=== PATIENT | female | born 1940 | race Caucasian/White ===

== ENCOUNTER 2017-05-22 08:56 | Inpatient (IN) | payer MEDICARE ==
--- NOTE | ~2017-05-22 | CR72 ---
[facility] A Service of [facility] & [facility] RADIOLOGY TEXT RESULTS PATIENT: LAURA PARKER LOCATION: [facility] 576-01 : 41 UNIT #: [id number] AGE: [address]: Michael Vale MD SEX: F ORDER DR: [id number] [facility] [address] [place], [place] [address] [id number] I MR#: [id number] Acc #: [id number] NAME: LAURA PARKER : 1940 SEX: F STUDY DATE/TIME: 05/22/2017 9:44 UNIT: [facility] ROOM: [facility] STUDY DESCRIPTION: CR Chest Single View Portable Attending Physician: Michael Vale M.D. Ordering Physician: Hipolito Ron D.O. Primary Care Physician: No Primary Care Physician MEDICAL IMAGING REPORT This report is preliminary unless electronic signature is present EXAM Portable chest, 1 views, 05/22/2017. HISTORY Short of air today. FINDINGS There is a moderate right basilar pneumothorax. A small apical right is seen as well. This is superimposed on what appears to be COPD. Heart size within normal limits. Results were discussed with Dr. Ron in the emergency room at about 10:10 a.m. Dictated by... Hasmukh Foley M.D. THIS IS AN ELECTRONICALLY VERIFIED REPORT Hasmukh Foley M.D. at 05/25/2017 4:07 PM AN/sherrie TD: 05/22/2017 15:55 JOB #: [id number] MEDICAL IMAGING REPORT Page 1 of 1 COPY
--- NOTE | ~2017-05-22 | CR72 ---
[facility] A Service of [facility] & [facility] RADIOLOGY TEXT RESULTS PATIENT: LAURA PARKER LOCATION: [facility] 576-01 : 41 UNIT #: [id number] AGE: [address]: Michael Vale MD SEX: F ORDER DR: [id number] [facility] [address] [place], [place] [address] [id number] I MR#: [id number] Acc #: [id number] NAME: LAURA PARKER : 1940 SEX: F STUDY DATE/TIME: 05/23/2017 16:52 UNIT: [facility] ROOM: [facility] STUDY DESCRIPTION: CR Chest Single View Portable Attending Physician: Michael Vale M.D. Ordering Physician: Alexandru Rich M.D. Primary Care Physician: No Primary Care Physician MEDICAL IMAGING REPORT This report is preliminary unless electronic signature is present EXAM Portable chest, 05/23/2017. HISTORY Shortness of breath, status post removal of right chest tube earlier today. Evaluate for pneumothorax. Benign essential hypertension and asthma. FINDINGS The cardiac and mediastinal structures are stable compared with earlier today at 6:13 a.m. The upper right pleural tube has been removed. The lower right pleural tube remains in place. There is no evidence of pneumothorax. Diffuse interstitial infiltrates are seen bilaterally, may reflect mild pulmonary edema. Atelectasis or infiltrate left lower lobe. IMPRESSION Removal of the upper right pleural tube compared with earlier today at 6:13 a.m. No evidence of pneumothorax. Dictated by... Dimitris Noe M.D. THIS IS AN ELECTRONICALLY VERIFIED REPORT Dimitris Noe M.D. at 05/24/2017 2:26 PM VLADIMIR/jovan TD: 05/23/2017 20:35 JOB #: [id number] MEDICAL IMAGING REPORT Page 1 of 1 COPY
--- NOTE | ~2017-05-22 | EKG ---
PATIENT: LAURA PARKER UNIT #: [id number] Ventricular Rate: 87 BPM Atrial Rate: 87 BPM P-R Interval: 146 ms QRS Duration: 102 ms Q-T Interval: 384 ms QTC Calculation(Bezet): 462 ms P [place]: 88 degrees Calculated R [place]: 94 degrees Calculated T [place]: 47 degrees Diagnosis Line: Normal sinus rhythm Diagnosis Line: Rightward axis Diagnosis Line: Incomplete right bundle branch block Diagnosis Line: Borderline ECG Diagnosis Line: No previous ECGs available Diagnosis Line: Confirmed by LORENA KENNEY MD ([id number]) on Diagnosis Line: 05/22/2017 4:26:13 PM INTERPRETING MD: ELIZABETH
--- NOTE | ~2017-05-22 | CR72 ---
[facility] A Service of [facility] & [facility] RADIOLOGY TEXT RESULTS PATIENT: LAURA PARKER LOCATION: [facility] 576-01 : 41 UNIT #: [id number] AGE: [address]: Michael Vale MD SEX: F ORDER DR: [id number] [facility] [address] [facility] [place], [place] [address] [id number] I MR#: [id number] Acc #: [id number] NAME: LAURA PARKER : 1940 SEX: F STUDY DATE/TIME: 05/22/2017 12:12 UNIT: [facility] ROOM: [facility] STUDY DESCRIPTION: CR Chest Single View Portable Attending Physician: Michael Vale M.D. Ordering Physician: Hipolito Ron D.O. MEDICAL IMAGING REPORT This report is preliminary unless electronic signature is present EXAM Portable chest one-view 05/22/2017 12:12 COMPARISON 09:44 HISTORY Right pneumothorax, short of air, chest tube insertion. FINDINGS There is been insertion of a right-sided small-bore chest tube. A moderate right basilar pneumothorax remains with questionable slight leftward midline shift. Dictated by... Hasmukh Foley M.D. THIS IS AN ELECTRONICALLY VERIFIED REPORT Hasmukh Foley M.D. at 05/23/2017 10:25 AM TEV/pcl TD: 05/22/2017 17:31 JOB #: [id number] MEDICAL IMAGING REPORT Page 1 of 1 COPY
--- NOTE | ~2017-05-22 | OR ---
Unit #: [id number] #: [id number] Patient: LAURA PARKER [id number] [address] [address] [id number] E MR#: [id number] NAME: LAURA PARKER ROOM: Date of Procedure: 05/22/2017 Admission Date: 05/22/2017 Surgeon: Naveed Rich M.D. : 1940 Attending Physician: Hipolito Ron D.O. Primary Care Physician: Lauren Primary Care Physician PROCEDURE OPERATIVE NOTE PROCEDURE PERFORMED Small percutaneous chest tube placement, pigtail. INDICATION FOR PROCEDURE Right-sided pneumothorax. PREMEDICATION Versed 4 mg IV x1. COMPLICATION None. DESCRIPTION OF THE PROCEDURE Informed consent was obtained from the patient after explaining the benefits and risks of this procedure. The right anterior chest was prepped and cleaned with chlorhexidine. Then, a body drape was applied. Then, 2% lidocaine was instilled at the level of the 2nd intercostal space. Then, a small cut with a scalpel was made and the small percutaneous pigtail tube was inserted over a trocar until air gush was obtained. Then, the catheter was inserted deeper, and the trocar was removed. The catheter was connected to suction, and a STAT chest x-ray is pending at the time of dictation. The patient tolerated her procedure well with no immediate complications. Dictated by... Naveed Rich M.D. EA/emile TD: 05/22/2017 13:24 JOB #: [id number] Unit #: [id number] #: [id number] Patient: LAURA PARKER PROCEDURE OPERATIVE NOTE Page 1 of 1 X NAVEED MCGRAW MD PROCEDURE OPERATIVE NOTE
--- NOTE | ~2017-05-22 | DS ---
Unit #: [id number] #: [id number] Patient: LAURA PARKER [id number] [address] [address] [id number] I MR#: [id number] NAME: LAURA PARKER ROOM: 576 Age: 76 Sex: F Admission Date: 05/22/2017 : 1940 Discharge Date: 05/25/2017 Attending Physician: Michael Vale M.D. Primary Care Physician: No Primary Care Physician DISCHARGE SUMMARY ADMITTING DIAGNOSES 1. Acute exacerbation of chronic obstructive pulmonary disease. 2. Right-sided spontaneous pneumothorax. DISCHARGE DIAGNOSES 1. Chronic hypoxic respiratory failure. 2. Acute exacerbation of chronic obstructive pulmonary disease. 3. Spontaneous right-sided pneumothorax, resolved. 4. Nicotine abuse. 5. Hypertension. 6. Questionable mental impairment or retardation. PROCEDURES PERFORMED Right-sided pigtail chest tube placement. DISCHARGE MEDICATIONS 1. Azithromycin 250 mg p.o. daily for 3 days. 2. Mucinex 600 mg p.o. b.i.d. for 30 pills times 1 refill. 3. Duo-Neb q.i.d. p.r.n. 4. Symbicort 160/4.5 b.i.d. 5. Prednisone tapering course. 6. Norvasc 10 mg p.o. daily. 7. Furosemide 20 mg p.o. daily. 8. Atorvastatin 10 mg p.o. daily. 9. Benazepril 40 mg p.o. daily. 10. [place] 7.5/325 mg q.i.d. p.r.n. BRIEF HOSPITAL COURSE This is a very pleasant 76-year-old female with a past medical history significant for chronic hypoxic respiratory failure and chronic obstructive pulmonary disease, who just moved from [place] to live with her daughter. The patient presented to the emergency room with respiratory distress, chest pain and shortness of breath. Workup was consistent with right-sided pneumothorax and acute exacerbation of chronic obstructive pulmonary disease. She initially had small port chest tube placed by sd anteriorly, with partial resolution of her pneumothorax. However, her chest tube was kinked and there was no leak in the chest tube, so another small port pigtail was inserted through interventional radiology with complete resolution of her pneumothorax. Chest tube was kept in for 24 hours with complete resolution of her pneumothorax. Chest tube was removed on 05/24/2017 and a follow-up chest x-ray on 05/25/2017 showed complete resolution of her pneumothorax. The patient was also placed on IV azithromycin, IV steroids and aggressive Unit #: [id number] #: [id number] Patient: MANUEL PARKERTY pulmonary toilet, including bronchodilator and mucolytic. She will be discharged home on Z-Mannie, prednisone pill and bronchodilator. FOLLOWUP The patient will follow up with Dr. Vale as an outpatient. She is unable to make it to my office in the [facility]. Time spent on discharge was 25 minutes. This plan was communicated with her daughter in detail. Dictated by... Chata Alberts TD: 05/25/2017 13:12 JOB #: [id number] DISCHARGE SUMMARY Page 1 of 1 X NAVEED MCGRAW MD X DISCHARGE SUMMARY
--- NOTE | ~2017-05-22 | CT57 ---
[facility] A Service of [facility] RADIOLOGY TEXT RESULTS PATIENT: LAURA PARKER LOCATION: [facility] 576-01 : 41 UNIT #: [id number] AGE: [address]: Michael Vale MD SEX: F ORDER DR: [id number] [facility] [address] [place], [place] [address] [id number] I MR#: [id number] Acc #: [id number] NAME: LAURA PARKER : 1940 SEX: F STUDY DATE/TIME: 05/22/2017 10:59 UNIT: [facility] ROOM: [facility] STUDY DESCRIPTION: CT Chest Wo Cont Attending Physician: Michael Vale M.D. Ordering Physician: Hipolito Ron D.O. Primary Care Physician: Primary Care Physician No MEDICAL IMAGING REPORT This report is preliminary unless electronic signature is present EXAM Chest CT without contrast, 05/22/2017 HISTORY Short of air and right side chest pain for [address] exam was performed with one or more of the following radiation dose reduction techniques: automatic exposure control, adjustment of mA and/or kV according to patient size, and iterative reconstruction. FINDINGS There is a right side pneumothorax. There may be some slight leftward mediastinal shift suggesting an element of tension pneumothorax though the lung is incompletely collapsed. There is no left pneumothorax and there is no evidence of suspicious mass and no effusion is seen. There is no fracture. The bony structures are unremarkable except for spinal degenerative change. It appears there has been right hemithyroidectomy. The upper abdomen is normal. IMPRESSION Moderate right pneumothorax with leftward mediastinal shift. While there is incomplete lung collapse, there may be an element of tension pneumothorax. Dictated by... Hasmukh Foley M.D. THIS IS AN ELECTRONICALLY VERIFIED REPORT Hasmukh Foley M.D. at 05/23/2017 10:28 AM AN/miguelito [facility] A Service of [facility] RADIOLOGY TEXT RESULTS PATIENT: LAURA PARKER LOCATION: [facility]6-01 : 41 UNIT #: [id number] AGE: [address]: Michael Vale MD SEX: F ORDER DR: TD: 05/22/2017 16:44 JOB #: [id number] MEDICAL IMAGING REPORT Page 1 of 1 COPY
--- NOTE | ~2017-05-22 | CR72 ---
[facility] A Service of [facility] RADIOLOGY TEXT RESULTS PATIENT: LAURA PARKER LOCATION: [facility] 576-01 : 41 UNIT #: [id number] AGE: [address]: Michael Vale MD SEX: F ORDER DR: [id number] [facility] [address]. [place], [place] [address] [id number] E MR#: [id number] Acc #: [id number] NAME: LAURA PARKER : 1940 SEX: F STUDY DATE/TIME: 05/22/2017 14:33 UNIT: [facility] ROOM: STUDY DESCRIPTION: CR Chest Single View Portable Attending Physician: Hipolito Ron D.O. Ordering Physician: Hipolito Ron D.O. Primary Care Physician: No Primary Care Physician MEDICAL IMAGING REPORT This report is preliminary unless electronic signature is present EXAM Portable chest. HISTORY Chest tube placement. Shortness of breath onset today. TECHNIQUE Single view of the chest was obtained and compared with earlier the same day. FINDINGS A small caliber chest tube is again seen on the right. The right pneumothorax has resolved almost completely. There is still a small residual pneumothorax at the apex. No new infiltrates are seen on either side. IMPRESSION Marked improvement since the previous examination. Small residual right apical pneumothorax. STAT * RESULT Dictated by... Anjum Hartmann M.D. THIS IS AN ELECTRONICALLY VERIFIED REPORT Anjum Hartmann M.D. at 05/22/2017 4:54 PM RLF/sherrie TD: 05/22/2017 15:07 JOB #: [id number] [facility] A Service of [facility] & [facility] RADIOLOGY TEXT RESULTS PATIENT: LAURA PARKER LOCATION: [facility] 576-01 : 41 UNIT #: [id number] AGE: [address]: Michael Vale MD SEX: F ORDER DR: MEDICAL IMAGING REPORT Page 1 of 1 COPY
--- NOTE | ~2017-05-22 | HP ---
Unit #: [id number] #: [id number] Patient: LAURA PARKER [id number] [address] [place], [place] [address] [id number] E MR#: [id number] NAME: LAURA PARKER ROOM: Age: 76 Sex: F Admission Date: 05/22/2017 : 1940 Attending Physician: Hipolito Ron D.O. Primary Care Physician: No Primary Care Physician HISTORY AND PHYSICAL REASON FOR ADMISSION Shortness of breath and new finding of pneumothorax. HISTORY OF PRESENT ILLNESS This is a very pleasant 76-year-old female with past medical history significant for hypertension and COPD, who is chronically on 3 L nasal cannula, who presented to the emergency room with two to three days history of progressive shortness of breath and dry cough. Patient also had some chest discomfort, but she could not tell if it was an overt chest pain. Patient denied any nausea, vomiting, or diarrhea. Patient smoked for a long time, at least one pack per day. She used to live in [place] and she just moved two to three days ago to live with her daughter here in [place]. REVIEW OF SYSTEMS A 12-point review of systems was obtained and was negative except for what was mentioned in the HPI. PAST MEDICAL HISTORY 1. Hypertension. 2. COPD. 3. Chronic hypoxic respiratory failure. PAST SURGICAL HISTORY 1. Appendectomy. 2. Gallbladder resection. 3. Tonsillectomy. SOCIAL HISTORY The patient smoked one pack per day for a long time. She does not drink or use street drugs. ALLERGIES No known drug allergies. CODE STATUS Full. PHYSICAL EXAMINATION GENERAL: The patient is in respiratory distress. VITAL SIGNS: Blood pressure is 151/69, respiratory rate 22, O2 saturation 96% on 4 L nasal cannula. HEENT: Atraumatic, normocephalic. PERRLA. EOMI. NECK: Supple. No JVD. No lymphadenopathy. Unit #: [id number] #: [id number] Patient: LAURA PARKER CHEST: Diffuse bilateral rhonchi and wheezing. HEART: S1, S2. No murmur, gallops, or rubs. ABDOMEN: Soft, nontender. Bowel sounds positive. No hepatosplenomegaly. EXTREMITIES: No edema or cyanosis. SKIN: No rashes. CENTRAL NERVOUS SYSTEM: Awake, alert, oriented x3. No focal motor/sensory deficits. DIAGNOSTIC STUDIES LABORATORY: Creatinine 0.7, chloride 96, CO2 of 31. Hemoglobin 9.4, platelets 588,000. IMAGING: Chest x-ray consistent with right-sided pneumothorax. ASSESSMENT 1. Right-sided spontaneous pneumothorax. 2. Acute exacerbation of chronic obstructive pulmonary disease. 3. Chronic hypoxic respiratory failure. 4. Chronic anemia. 5. Hypertension. 6. Nicotine abuse. PLAN 1. Will proceed with emergent chest tube placement in the emergency room. I will chose a small port as this is only a pneumothorax issue. 2. IV steroid bronchodilator and mucolytics. 3. Gentle IV hydration and will hold Lasix overnight. 4. IV azithromycin. 5. Deep venous thrombosis prophylaxis. Dictated by Chata Alberts TD: 05/22/2017 12:51 JOB #: [id number] HISTORY AND PHYSICAL Page 1 of 1 X NAVEED MCGRAW MD X HISTORY AND PHYSICAL
--- NOTE | ~2017-05-22 | XA96 ---
[facility] A Service [facility] RADIOLOGY TEXT RESULTS PATIENT: LAURA PARKER LOCATION: [facility] 576-01 : 41 UNIT #: [id number] AGE: [address]: Michael Vale MD SEX: F ORDER DR: [id number] [address] [place], [place] [address] [id number] I MR#: [id number] Acc #: [id number] NAME: LAURA PARKER : 1940 SEX: F STUDY DATE/TIME: 05/22/2017 10:36 UNIT: [facility] ROOM: [facility] STUDY DESCRIPTION: XA Chest Tube for Pneumo or pl Attending Physician: Michael Vale M.D. Ordering Physician: Michael Vale M.D. Primary Care Physician: No Primary Care Physician MEDICAL IMAGING REPORT This report is preliminary unless electronic signature is present EXAM Fluoroscopically-guided right chest tube placement. INDICATION 76-year-old female with spontaneous pneumothorax today in the ER. Chest tube was placed in the ER, however, the lung failed to completely re-expand and there is a large residual pneumothorax at the right base. Chest tube placement was requested. FLUOROSCOPY TIME 1.2 minutes. REFERENCE AIR KERMA 4 mGy MEDICATIONS ADMINISTERED 1 mg of Versed IV and 50 mcg of fentanyl IV. Approximately 25 minutes of conscious sedation time was monitored by appropriately credentialed radiology nursing staff with 11 minutes of face to face time direct supervision by Dr. Martinez. CONSENT The risks, benefits, and alternatives of the procedure were discussed with the patient and informed consent was obtained. In the procedure room, a time-out was performed confirming correct patient and procedure. All elements of maximum sterile-barrier technique utilized according to guidelines appropriate for the procedure. TECHNIQUE/FINDINGS The patient was placed on the fluoroscopy table in the supine position and fluoroscopic evaluation of the chest demonstrated a moderate right basilar pneumothorax similar to the chest x-ray done prior to the procedure. Next, using full standard sterile barrier technique including sterile [facility] A Service [facility] RADIOLOGY TEXT RESULTS PATIENT: LAURA PARKER LOCATION: [facility] 576-01 : 41 UNIT #: [id number] AGE: [address]: Michael Vale MD SEX: F ORDER DR: caps, gowns, gloves, masks, drapes, 2% Chlorhexidine for cutaneous antisepsis. A 5-Comoran Yueh catheter was inserted into the pleural space via a mid axillary approach at the right base. A superstiff guidewire was advanced through the catheter. The catheter was removed and the track was serially dilated. Next, a 10-Comoran pigtail catheter was advanced over the guidewire and formed in the pleural space of the right lung base. The catheter was sutured in place and hooked to Pleur-evac drainage. Spot image confirmed satisfactory positioning with significant decrease in size of pneumothorax. Patient tolerated the procedure well without immediate complications. IMPRESSION Technically successful placement of a right sided chest tube as described. Dictated by... Chance Martinez M.D. THIS IS AN ELECTRONICALLY VERIFIED REPORT Chance Martinez M.D. at 05/24/2017 12:25 PM GARTH/sherrie TD: 05/23/2017 09:13 JOB #: [id number] MEDICAL IMAGING REPORT Page 1 of 1 COPY
--- NOTE | ~2017-05-22 | CR72 ---
[facility] A Service of [facility] & [facility] RADIOLOGY TEXT RESULTS PATIENT: LAURA PARKER LOCATION: [facility] 576-01 : 41 UNIT #: [id number] AGE: [address]: Michael Vale MD SEX: F ORDER DR: [id number] [facility] [address]. [place], [place] [address] [id number] I MR#: [id number] Acc #: [id number] NAME: LAURA PARKER : 1940 SEX: F STUDY DATE/TIME: 05/25/2017 5:52 UNIT: [facility] ROOM: [facility] STUDY DESCRIPTION: CR Chest Single View Portable Attending Physician: Michael Vale M.D. Ordering Physician: Alexandru Rich M.D. Primary Care Physician: No Primary Care Physician MEDICAL IMAGING REPORT This report is preliminary unless electronic signature is present EXAM Portable chest. INDICATION Follow up pneumothorax. COMPARISON Comparison with 05/23/2017. FINDINGS The right chest tube has been removed. There is no appreciable pneumothorax. No new infiltrates. The heart size is stable. IMPRESSION Removal of a right chest tube. No appreciable pneumothorax. Dictated by... Chance Martinez M.D. THIS IS AN ELECTRONICALLY VERIFIED REPORT Chance Martinez M.D. at 05/27/2017 12:10 PM GARTH/sherrie TD: 05/25/2017 10:07 JOB #: [id number] MEDICAL IMAGING REPORT Page 1 of 1 COPY
--- NOTE | ~2017-05-22 | CR72 ---
[facility] A Service of [facility] & [facility] RADIOLOGY TEXT RESULTS PATIENT: LAURA PARKER LOCATION: [facility] 576-01 : 41 UNIT #: [id number] AGE: [address]: Michael Vale MD SEX: F ORDER DR: [id number] [facility] [address] [place], [place] [address] [id number] I MR#: [id number] Acc #: [id number] NAME: LAURA PARKER : 1940 SEX: F STUDY DATE/TIME: 05/23/2017 6:13 UNIT: [facility] ROOM: [facility] STUDY DESCRIPTION: CR Chest Single View Portable Attending Physician: Michael Vale M.D. Ordering Physician: Michael Vale M.D. Primary Care Physician: Primary Care Physician No MEDICAL IMAGING REPORT This report is preliminary unless electronic signature is present EXAM Single view chest INDICATIONS Pneumothorax. Right chest tube. FINDINGS Single portable AP view of the chest compared to 05/22/17. There are 2 right chest tubes. No pneumothorax is visible on today's radiograph. There is some mild increased interstitial markings in both lungs. IMPRESSION 1. Resolution of the right pneumothorax. Patient has 2 right-sided chest tubes. Dictated by... Greyson Lara M.D. THIS IS AN ELECTRONICALLY VERIFIED REPORT Greyson Lara M.D. at 05/23/2017 8:02 AM TRI/michelle TD: 05/23/2017 07:20 JOB #: [id number] MEDICAL IMAGING REPORT Page 1 of 1 COPY
[2017-05-22 09:55] LABS: BASOPHIL# 0.1 X10e3 (0-0.3); BASOPHIL% 0.8 % (0-2.5); EOSINOPHIL# 0.2 X10e3 (0-0.7); EOSINOPHIL% 2.5 % (0.0-7.0); HEMATOCRIT 30.2 % (35.0-45.0); HEMOGLOBIN 9.4 gm/dL (12.0-16.0); LYMPHOCYTE# 0.9 X10e3 (1.0-3.5); LYMPHOCYTE% 10.8 % (17.0-45.0); MEAN CELL VOLUME 92.3 FL (83-96); MEAN CORPUSCULAR HEMOGLOBIN 28.7 PG (28-34); MEAN CORPUSCULAR HGB CONC 31.1 g/dL (30-36); MEAN PLATELET VOLUME 6.7 FL (6.5-11.5); MONOCYTE# 0.5 X10e3 (0-1.0); NEUTROPHIL# 6.3 X10e3 (1.5-7.1); NEUTROPHIL% 79.9 % (40-75); PLATELET COUNT 588 X10e3 (140-420); RED BLOOD COUNT 3.27 X10e (3.90-5.30); RED CELL DISTRIBUTION WIDTH 16.2 % (11.0-15.5); WHITE BLOOD COUNT 7.9 X10e3 (4.0-10.5)
[2017-05-22 09:56] LABS: DIFF IND NO
[2017-05-22 09:58] LABS: POC - CKMB 22.1 ng/mL (0.0-7.9); POC - TROPONIN <0.05 ng/mL (<=0.05)
[2017-05-22 10:07] LABS: PARTIAL THROMBOPLASTIN TIME 23.9 SECONDS (23.5-31.3); PROTHROMBIN TIME (PATIENT) 10.5 SECONDS (10.0-11.7)
[2017-05-22] MEDS ORDERED: BENAZEPRIL HCL40 MG PO (10:07)
[2017-05-22] MEDS ORDERED: AMLODIPINE-BEN1 EAC5 PO (10:07)
[2017-05-22] MEDS ORDERED: PATIENT'S PHARMACY (10:07)
[2017-05-22] MEDS ORDERED: LASIX20 MG PO (10:08)
[2017-05-22] MEDS ORDERED: SYMBICORT INH (10:08)
[2017-05-22] MEDS ORDERED: ATORVASTATIN CA10 MG PO (10:08)
[2017-05-22] MEDS ORDERED: PROAIR HFA8.5 GM INH (10:08)
[2017-05-22] MEDS ORDERED: HYDROCODON-ACE1 EAC9 PO (10:09)
[2017-05-22 10:39] LABS: ALBUMIN SERUM 4.1 g/dL (3.5-5.0); ALKALINE PHOSPHATASE 85 U/L (32-92); ALT (SGPT) 12 U/L (10-40); AST (SGOT) 18 U/L (10-42); BILIRUBIN,TOTAL 0.3 mg/dL (0.2-2.0); BLOOD UREA NITROGEN 12 mg/dL (9-23); BUN/CREATININE RATIO 17.14; CALCIUM SERUM 9.3 mg/dL (8.4-10.2); CARBON DIOXIDE 31 mmol/L (22-31); CHLORIDE 96 mmol/L (100-111); CREATININE SERUM 0.7 mg/dL (0.6-1.4); GLOM FILT RATE Estimated 84.8 mL/min (>60); GLUCOSE FASTING 113 mg/dL (70-110); POTASSIUM 3.9 mmol/L (3.5-5.1); PROTEIN TOTAL SERUM 8.4 g/dL (6.0-8.3); SODIUM 138 mmol/L (135-145)
[2017-05-22 10:40] LABS: BILIRUBIN, DIRECT <0.1 mg/dL (0.0-0.2); BILIRUBIN,INDIRECT 0.2 mg/dL (0.0-0.9)
[2017-05-22 11:51] LABS: POC - CKMB 13.2 ng/mL (0.0-7.9); POC - TROPONIN <0.05 ng/mL (<=0.05)
[2017-05-25] MEDS ORDERED: COMBIVENT U/D3 M2 INH (11:37)
[2017-05-25] MEDS ORDERED: HUMIBID-LA600 MG PO (11:39)
[2017-05-25] MEDS ORDERED: AZITHROMYCIN250 MG PO (11:39)
[2017-05-25] MEDS ORDERED: PREDNISONE (13:19)
== END 2017-05-25 15:23 | disposition home or self-care (01) | DRG 200 ==
LOC: CED 08:56 → CEDOF 10:33 → C5C 10:33 → CED 12:35 → CEDOF 12:35 → C5C 15:21 → CEDOF 15:21 → C5C 05-25 15:23
PROVIDERS: Emergency Medicine
PROC: 0W9930Z Drainage of Right Pleural Cavity with Drainage Device, Percutaneous Approach (ICD-10-PCS; principal; 2017-05-22)
PROC: 0W9930Z Drainage of Right Pleural Cavity with Drainage Device, Percutaneous Approach (ICD-10-PCS; 2017-05-22)
DX: J93.83 Other pneumothorax (principal); J44.1 Chronic obstructive pulmonary disease with (acute) exacerbation; J96.11 Chronic respiratory failure with hypoxia; Z99.81 Dependence on supplemental oxygen; F17.210 Nicotine dependence, cigarettes, uncomplicated; I10 Essential (primary) hypertension; Z90.49 Acquired absence of other specified parts of digestive tract; D64.9 Anemia, unspecified
CPT/HCPCS: 36415; 71010; 71250; 80048; 80076; 82550; 82553; 83605; 83880; 84484; 85025; 85610; 85730; 93005; 94640; 94664; 94760; 96374; 99285; C1729; J0456; J1650; J2250; J2920; J2930; J3010

== ENCOUNTER → 2017-06-20 | Outpatient (CLI) | payer OTHER ==
[~2017-06-20] MED LIST: AMLODIPINE-BEN1 EAC5 PO; ATORVASTATIN CA10 MG PO; AZITHROMYCIN250 MG PO; BENAZEPRIL HCL40 MG PO; COMBIVENT U/D3 M2 INH; FLORASTOR; HUMIBID-LA600 MG PO; HYDROCODON-ACE1 EAC9 PO; LASIX20 MG PO; OMNICEF300 M1 PO; PATIENT'S PHARMACY; PREDNISONE; PROAIR HFA8.5 GM INH; SYMBICORT INH
--- NOTE | ~2017-06-20 | CT57 ---
[facility] A Service of [facility] & [facility] RADIOLOGY TEXT RESULTS PATIENT: LAURA PARKER LOCATION: [facility] : 41 UNIT #: [id number] AGE: [address]: Michael Vale MD SEX: F ORDER DR: [id number] [facility] [address] [facility] [place], [place] [address] [id number] O MR#: [id number] Acc #: [id number] NAME: LAURA PARKER : 1940 SEX: F STUDY DATE/TIME: 06/20/2017 12:45 UNIT: [facility] ROOM: STUDY DESCRIPTION: CT Chest Wo Cont Attending Physician: Michael Vale M.D. Referring Physician: Michael Vale M.D. Ordering Physician: Michael Vale M.D. Primary Care Physician: Primary Care Physician No MEDICAL IMAGING REPORT This report is preliminary unless electronic signature is present EXAM CT chest without contrast INDICATION Pneumothorax diagnosed May 22, 2017. This was a right-sided pneumothorax and it was spontaneous. The patient subsequently underwent placement of a right-sided chest tube which was removed on May 23. TECHNIQUE Axial CT images were obtained from the thoracic inlet through the dome of the diaphragm. No intravenous contrast material was administered. This CT exam was performed with one or more of the following radiation dose reduction techniques: automatic exposure control, adjustment of mA and/or kV according to patient size, and iterative reconstruction. FINDINGS No residual pneumothorax is identified within the right hemithorax. Patient does have scattered tree-in-bud infiltrates throughout the right lung which are actually present on the prior examination as well. There is some left basilar consolidation adjacent to the mediastinum which was not clearly present on the prior study. This area measures up to about 1.3 cm x 1.2 cm. No pneumothorax is seen on the left. The patient does have some scattered tree-in-bud infiltrates on the left as well but certainly not as numerous as on the right. Left lobe of the thyroid gland is enlarged and heterogeneous and the patient is status post right thyroidectomy. This area could be better assessed with dedicated thyroid ultrasound. Mediastinal lymph nodes do not appear pathologically enlarged. There is no pleural or pericardial effusion. The thoracic aorta measures within normal size limits. Trachea is within normal limits. There is a small to moderate hiatal hernia. Calcified granulomata are seen within the spleen. There is some STS. [facility] A Service of [facility] & [facility] RADIOLOGY TEXT RESULTS PATIENT: LAURA PARKER LOCATION: [facility] : 41 UNIT #: [id number] AGE: [address]: Michael Vale MD SEX: F ORDER DR: low attenuation lesions seen throughout the liver which are favored to represent cysts. I do not see any acute abnormalities within the upper abdomen. Review of bony windows does not demonstrate any aggressive osseous abnormalities. IMPRESSION 1. Interval resolution of this patient's right-sided pneumothorax. 2. Tree-in-bud infiltrates seen throughout both lungs, right greater than left, favored to be infectious or inflammatory in nature. There is also some focal consolidation seen within the left lower lobe at the lung base measuring up to 1.3 cm x 1.2 cm which is bigger than on prior study and I suspect this was probably a benign finding but given background emphysematous changes I would suggest short-term CT followup in 3 months. 3. The left lobe of the thyroid gland is enlarged and very heterogeneous the patient is status post right thyroidectomy. Further evaluation with dedicated thyroid ultrasound is suggested if not recently performed. 4. Vytdk-sw-[id number] hiatal hernia. Dictated by... Sheree Lake M.D. THIS IS AN ELECTRONICALLY VERIFIED REPORT Sheree Lake M.D. at 06/21/2017 5:26 PM HUBER/alejandra TD: 06/21/2017 02:50 JOB #: [id number] MEDICAL IMAGING REPORT Page 1 of 1 COPY
== END | disposition home or self-care (01) ==
LOC: CRC 11:42
DX: J44.9 Chronic obstructive pulmonary disease, unspecified (principal); J93.9 Pneumothorax, unspecified; R91.8 Other nonspecific abnormal finding of lung field; E04.9 Nontoxic goiter, unspecified; K44.9 Diaphragmatic hernia without obstruction or gangrene; E89.0 Postprocedural hypothyroidism
CPT/HCPCS: 71250; 94060; 94726; 94729

== ENCOUNTER 2017-07-16 10:30 | Inpatient (IN) | payer MEDICARE, OTHER ==
[~2017-07-16] VITALS: Ht 149.9 cm; Wt 61.8 kg
--- NOTE | ~2017-07-16 | HP ---
Unit #: [id number] #: [id number] Patient: LAURA PARKER [id number] [address] [place], [place] [address] [id number] I MR#: [id number] NAME: LAURA PARKER. ROOM: 82765 Age: 76 Sex: F Admission Date: 07/16/2017 : 1940 Attending Physician: Naveed Rich M.D. Primary Care Physician: Generic Doctor Not In System HISTORY AND PHYSICAL REASON FOR ADMISSION Nausea, vomiting, abdominal pain, lightheadedness and shortness of breath. HISTORY OF PRESENT ILLNESS This is a very pleasant 76-year-old female who follows with me and Dr. Vale in our office, who presented to the emergency room with 2 weeks history of nausea, vomiting, lightheadedness, shortness of breath and cough. Patient stated that she went to see Dr. Vale and she was given Levaquin for 10 days which she finished with no improvement so she finally presented to the emergency room. Patient denied any fever, chills, but she was having some abdominal discomfort. Patient is on oxygen at home but she wasn't also getting nebulizer as home health hasn't delivered any machine to her home yet. PAST MEDICAL HISTORY 1. Hypertension. 2. COPD. 3. Chronic hypoxic respiratory failure. PAST SURGICAL HISTORY 1. Appendectomy. 2. Gallbladder resection. 3. Tonsillectomy. 4. Chest tube placement on the right side for spontaneous pneumothorax. SOCIAL HISTORY Patient smokes one pack per day for a long time but she quit. No history of alcohol or drug abuse. ALLERGY No known drug allergy. CODE STATUS Full. REVIEW OF SYSTEM 12-point review of system were obtained and were negative except for what was mentioned in the HPI. PHYSICAL EXAM GENERAL: The patient is in no acute distress. HEENT: Atraumatic, normocephalic. PERRLA, EOMI. Unit #: [id number] #: [id number] Patient: LAURA PARKER NECK: Supple. No JVD, no lymphadenopathy. CHEST: Decreased breath sounds bilaterally with diffuse wheezing. HEART: S1, S2. No murmur, gallops or rubs. ABDOMEN: Soft, nontender. Bowel sound is positive. No hepatosplenomegaly. EXTREMITIES: No edema or cyanosis. SKIN: No rashes. ULTRASOUND SPEC: Awake, alert, oriented x3. No focal motor/sensory deficit. LABS AND OTHER TESTS Creatinine 0.8, sodium 140, white blood count 4.5, hemoglobin 8.4. Chest x-ray is concerning for left lower lobe pneumonia. ASSESSMENT 1. Chronic hypoxic respiratory failure. 2. Healthcare-associated pneumonia, Gram-negative/MRSA. 3. Acute exacerbation of COPD. 4. Hypertension. 5. History of spontaneous pneumothorax on the right side. 6. Ex-smoker. PLAN 1. Patient will be admitted to Med/Surg for gentle IV hydration. 2. Zosyn, bronchodilator and IV steroid. 3. Bronchoscopy in the morning. 4. DVT prophylaxis. Dictated by Chata Alberts TD: 07/16/2017 13:54 JOB #: [id number] HISTORY AND PHYSICAL Page 1 of 1 X NAVEED MCGRAW MD X HISTORY AND PHYSICAL
--- NOTE | ~2017-07-16 | EKG ---
PATIENT: LAURA PARKER UNIT #: [id number] Ventricular Rate: 73 BPM Atrial Rate: 73 BPM P-R Interval: 152 ms QRS Duration: 112 ms Q-T Interval: 416 ms QTC Calculation(Bezet): 458 ms P [place]: 86 degrees Calculated R [place]: 67 degrees Calculated T [place]: 35 degrees Diagnosis Line: Normal sinus rhythm Diagnosis Line: Right bundle branch block with repolarization Diagnosis Line: abnormality Diagnosis Line: Abnormal ECG Diagnosis Line: When compared with ECG of 22-MAY-2017 09:49, Diagnosis Line: No significant change was found Diagnosis Line: Confirmed by CIELO CHIU MD ([id number]) on 07/16/2017 Diagnosis Line: 2:07:42 PM INTERPRETING MD: ARAM GAO
--- NOTE | ~2017-07-16 | OR ---
Unit #: [id number] #: [id number] Patient: LAURA PARKER [id number] [address] [address] [id number] I MR#: [id number] NAME: LAURA PARKER. ROOM: 216 Date of Procedure: 07/17/2017 Admission Date: 07/16/2017 Surgeon: Naveed Rich M.D. : 1940 Attending Physician: Naveed Rich M.D. Primary Care Physician: Generic Doctor Not In System PROCEDURE OPERATIVE NOTE PROCEDURE Diagnostic bronchoscopy with bronchial washing PREOP DIAGNOSIS Respiratory failure and pneumonia. POSTOP DIAGNOSIS AND FINDING Thin creamy colored secretions in the left lower lobe that was aspirated and lavaged. PREMEDICATION MAC sedation. COMPLICATION None. DESCRIPTION OF THE PROCEDURE An informed consent was obtained from the patient herself after explaining the benefits and risks of this procedure. Patient was prepped and positioned in proper way then, after she was inducted with propofol, the bronchoscope was advanced through the oral cavity and at the level of the vocal cords 2% lidocaine x5 mL was instilled and the bronchoscope was advanced through the vocal cord into the trachea and at the level of the maru 1% lidocaine was instilled and bronchoscope was advanced into the left main bronchus and the left upper lobe, left lower lobe and lingula were examined and washing was obtained from the let lower lobe where the most secretion was noted. It was thin creamy secretions. The bronchoscope was retracted and then readvanced into the right main bronchus to the right upper lobe, right middle lobe and right lower lobe were examined which appeared slightly erythematous with some thin secretion that was lavaged and aspirated. The bronchoscope was retracted out then and patent tolerated her procedure well with no immediate complication. Dictated by... Naveed Rich M.D. EA/cheikh Unit #: [id number] #: [id number] Patient: LAURA PARKER TD: 07/18/2017 22:31 JOB #: [id number] PROCEDURE OPERATIVE NOTE Page 1 of 1 X NAVEED MCGRAW MD X PROCEDURE OPERATIVE NOTE
--- NOTE | ~2017-07-16 | DS ---
Unit #: [id number] #: [id number] Patient: LAURA PARKER [id number] [address] [address] [id number] I MR#: [id number] NAME: LAURA PARKER. ROOM: 216 Age: 76 Sex: F Admission Date: 07/16/2017 : 1940 Discharge Date: 07/19/2017 Attending Physician: Naveed Rich M.D. Primary Care Physician: Generic Doctor Not In System DISCHARGE SUMMARY ADMITTING DIAGNOSES 1. Chronic hypoxic respiratory failure. 2. Healthcare-associated pneumonia. 3. Acute exacerbation of chronic obstructive pulmonary disease. DISCHARGE DIAGNOSES 1. Chronic hypoxic respiratory failure. 2. Pneumonia with gram positive. 3. Acute exacerbation of chronic obstructive pulmonary disease. 4. Hypertension. 5. History of spontaneous pneumothorax. 6. Ex-smoker. 7. Hypertension. 8. Hyperlipidemia. PROCEDURE Bronchoscopy. DISPOSITION Discharge home. DISCHARGE CONDITION Stable. BRIEF HOSPITAL COURSE This is a very pleasant 76-year-old female, who is well known to our service from previous admissions, who follows Dr. Vale as an outpatient, who presented to the emergency room after she failed outpatient antibiotic therapy. Patient was seen by Dr. Vale a week ago and she was placed on Levaquin for pneumonia; however, she continued to feel lightheaded, dehydrated, and her shortness of breath and cough were getting worse so she finally presented to the emergency room. Patient was admitted and placed on IV Zosyn and she underwent the bronchoscopy the next day. That showed gram positive in the sputum. Patient received Zosyn for three days, and she will be discharged on Omnicef to finish another five days. She was also treated with IV steroids, bronchodilator, and mucolytics. Patient was ambulated before discharge and family and physical therapy agreed that she is stable to go home. DISCHARGE MEDICATIONS 1. Omnicef 300 mg p.o. b.i.d. x5 days. 2. Medrol pack. Unit #: [id number] #: [id number] Patient: LAURA PARKER 3. Florastor one tab p.o. b.i.d. for 30 days. 4. Mucinex 600 mg p.o. b.i.d. 5. DuoNeb. 6. Symbicort. 7. Norvasc 10 mg p.o. daily. 8. Furosemide 20 mg p.o. daily. 9. Atorvastatin 10 mg p.o. daily. 10. Benazepril 40 mg p.o. daily. 11. [place] 7.5/325 mg p.o. q.i.d. p.r.n. Dictated by... Chata Alberts TD: 07/19/2017 11:07 JOB #: [id number] DISCHARGE SUMMARY Page 1 of 1 X NAVEED MCGRAW MD X DISCHARGE SUMMARY
--- NOTE | ~2017-07-16 | CR72 ---
[facility] A Service of [facility] & [facility] RADIOLOGY TEXT RESULTS PATIENT: LAURA PARKER LOCATION: [facility] 304-01 : 41 UNIT #: [id number] AGE: [address]: NAVEED MCGRAW MD SEX: F ORDER DR: [id number] [facility] [address] [facility]. [place], [place] [address] [id number] E MR#: [id number] Acc #: [id number] NAME: LAURA PARKER : 1940 SEX: F STUDY DATE/TIME: 07/16/2017 11:35 UNIT: [facility] ROOM: STUDY DESCRIPTION: CR Chest Single View Portable Attending Physician: Ron Fleming M.D. Ordering Physician: Ron Fleming M.D. Primary Care Physician: Generic Doctor Not In System MEDICAL IMAGING REPORT This report is preliminary unless electronic signature is present EXAM Portable chest 07/16/2017 HISTORY Shortness of breath and right side chest pain with vomiting for 2 days. Benign essential hypertension, myocardial infarction and asthma. FINDINGS The cardiac and mediastinal structures are stable compared with 05/25/2017. Lungs are hyperinflated with emphysematous and fibrotic changes characteristic of COPD. Minimal infiltrate left lower lobe suspicious for pneumonia. There are no pleural effusions. IMPRESSION COPD with minimal infiltrate left lower lobe suspicious for pneumonia. Dictated by... Dimitris Noe M.D. THIS IS AN ELECTRONICALLY VERIFIED REPORT Dimitris Noe M.D. at 07/17/2017 10:35 AM VLADIMIR/erma TD: 07/16/2017 12:17 JOB #: [id number] MEDICAL IMAGING REPORT Page 1 of 1 COPY
[~2017-07-16 10:30] MED LIST changes: -FLORASTOR; -OMNICEF300 M1 PO
[2017-07-16 11:12] LABS: BASOPHIL# 0.1 X10e3 (0-0.3); BASOPHIL% 3.1 % (0-2.5); EOSINOPHIL# 0.1 X10e3 (0-0.7); EOSINOPHIL% 1.9 % (0.0-7.0); HEMATOCRIT 27.2 % (35.0-45.0); HEMOGLOBIN 8.4 gm/dL (12.0-16.0); LYMPHOCYTE# 1.7 X10e3 (1.0-3.5); LYMPHOCYTE% 38.2 % (17.0-45.0); MEAN CELL VOLUME 93.9 FL (83-96); MEAN CORPUSCULAR HEMOGLOBIN 29.2 PG (28-34); MEAN PLATELET VOLUME 6.4 FL (6.5-11.5); MONOCYTE# 0.5 X10e3 (0-1.0); MONOCYTE% 11.7 % (3.0-12.0); NEUTROPHIL% 45.1 % (40-75); PLATELET COUNT 443 X10e3 (140-420); RED BLOOD COUNT 2.89 X10e (3.90-5.30); RED CELL DISTRIBUTION WIDTH 16.1 % (11.0-15.5); WHITE BLOOD COUNT 4.5 X10e3 (4.0-10.5)
[2017-07-16 11:14] LABS: DIFF IND NO
[2017-07-16 11:21] LABS: POC - CKMB 1.8 ng/mL (0.0-7.9); POC - TROPONIN <0.05 ng/mL (<=0.05)
[2017-07-16 11:32] LABS: BILIRUBIN, DIRECT 0.1 mg/dL (0.0-0.2); BILIRUBIN,INDIRECT 0.5 mg/dL (0.0-0.9); BILIRUBIN,TOTAL 0.6 mg/dL (0.2-2.0); BUN/CREATININE RATIO 16.25; CALCIUM SERUM 9.1 mg/dL (8.4-10.2); CREATININE SERUM 0.8 mg/dL (0.6-1.4); GLOM FILT RATE Estimated 72.2 mL/min (>60); POTASSIUM 3.6 mmol/L (3.5-5.1); PROTEIN TOTAL SERUM 7.1 g/dL (6.0-8.3)
[2017-07-16 13:15] LABS: POC - CKMB <1.0 ng/mL (0.0-7.9); POC - TROPONIN <0.05 ng/mL (<=0.05)
[2017-07-17 15:23] LABS: BODY FLUID APPEARANCE CLOUDY; BODY FLUID SOURCE BRONCHIAL LAVAGE
[2017-07-18 06:13] LABS: HEMATOCRIT 22.7 % (35.0-45.0); MEAN CORPUSCULAR HEMOGLOBIN 29.1 PG (28-34); MEAN PLATELET VOLUME 6.5 FL (6.5-11.5); RED BLOOD COUNT 2.41 X10e (3.90-5.30); RED CELL DISTRIBUTION WIDTH 16.2 % (11.0-15.5); WHITE BLOOD COUNT 6.4 X10e3 (4.0-10.5)
[2017-07-18 06:52] LABS: BUN/CREATININE RATIO 21.42; CALCIUM SERUM 8.3 mg/dL (8.4-10.2); CREATININE SERUM 0.7 mg/dL (0.6-1.4); GLOM FILT RATE Estimated 84.8 mL/min (>60); POTASSIUM 4.3 mmol/L (3.5-5.1)
[2017-07-19 05:24] LABS: HEMATOCRIT 25.7 % (35.0-45.0); HEMOGLOBIN 8.4 gm/dL (12.0-16.0); MEAN CELL VOLUME 93.4 FL (83-96); MEAN CORPUSCULAR HEMOGLOBIN 30.6 PG (28-34); MEAN CORPUSCULAR HGB CONC 32.8 g/dL (30-36); MEAN PLATELET VOLUME 6.8 FL (6.5-11.5); RED BLOOD COUNT 2.75 X10e (3.90-5.30); RED CELL DISTRIBUTION WIDTH 15.8 % (11.0-15.5); WHITE BLOOD COUNT 7.5 X10e3 (4.0-10.5)
[2017-07-19 06:04] LABS: BUN/CREATININE RATIO 28.33; CALCIUM SERUM 8.8 mg/dL (8.4-10.2); CREATININE SERUM 0.6 mg/dL (0.6-1.4); GLOM FILT RATE Estimated 89.2 mL/min (>60); POTASSIUM 4.3 mmol/L (3.5-5.1)
[2017-07-19] MEDS ORDERED: FLORASTOR (08:19)
[2017-07-19] MEDS ORDERED: OMNICEF300 M1 PO (08:19)
== END 2017-07-19 10:13 | disposition home or self-care (01) | DRG 166 ==
LOC: CED 10:30 → CEDOF 12:30 → C2A 12:30 → CED 13:43 → CEDOF 13:43 → C3A PCU 14:45 → C2A 07-17 11:20 → C3A PCU 07-17 11:20 → C2A 07-19 10:13
PROVIDERS: Emergency Medicine; Internal Medicine Pulmonary Disease
PROC: 0B9K8ZZ Drainage of Right Lung, Via Natural or Artificial Opening Endoscopic (ICD-10-PCS; 2017-07-17)
PROC: 0B9J8ZX Drainage of Left Lower Lung Lobe, Via Natural or Artificial Opening Endoscopic, Diagnostic (ICD-10-PCS; 2017-07-17 10:27)
PROC: 30233N1 Transfusion of Nonautologous Red Blood Cells into Peripheral Vein, Percutaneous Approach (ICD-10-PCS; principal; 2017-07-18)
DX: J44.0 Chronic obstructive pulmonary disease with (acute) lower respiratory infection (principal); J18.9 Pneumonia, unspecified organism; J96.10 Chronic respiratory failure, unspecified whether with hypoxia or hypercapnia; D64.9 Anemia, unspecified; E86.0 Dehydration; J44.1 Chronic obstructive pulmonary disease with (acute) exacerbation; I10 Essential (primary) hypertension; Z90.710 Acquired absence of both cervix and uterus; I25.2 Old myocardial infarction; E78.5 Hyperlipidemia, unspecified; Z90.49 Acquired absence of other specified parts of digestive tract; Z87.891 Personal history of nicotine dependence
CPT/HCPCS: 36415; 36430; 71010; 80048; 80076; 82553; 83690; 84484; 85025; 85027; 86850; 86900; 86901; 86923; 87040; 87070; 87102; 87116; 87205; 87206; 87252; 87254; 87278; 88108; 88305; 88312; 89051; 93005; 94640; 94664; 94760; 96374; 97161; 97165; 99285; G8978-GP; G8979-GP; G8980-GP; G8987-GO; G8988-GO; G8989-GO; J0171; J1650; J2405; J2543; J2920; P9016